=== PATIENT | male | born 1990 | race Caucasian/White ===

== ENCOUNTER 2016-07-18 13:54 | Inpatient (IN) | payer BC, OTHER ==
--- NOTE | ~2016-07-18 | PN ---
Unit #: [id number] #: [id number] Patient: TAMIE KIDD [id number] [facility] [address] [place] [address] [id number] I MR#: [id number] NAME: TAMIE KIDD ROOM: P256 Age: 26 Sex: M Admission Date: 07/18/2016 : 1990 Attending Physician: Pablo Leger M.D. Admitting Physician: Pablo Leger M.D. Primary Care Physician: Primary Care Physician Siri MOON PROGRESS NOTES DATE 07/19/2016 DISCUSSION Mr. Kidd is a 26-year-old, white male who was seen today and chart was reviewed and case was discussed with the staff. He has been anxious, withdrawn and rather seclusive to himself. Meanwhile, he has been cooperative with treatment recommendations. He has been taking medications and tolerating them fairly well with no reported side effects. MENTAL STATUS EXAM Young white male who was casually dressed with fair personal hygiene, appears to be in no acute distress or discomfort. He was awake and alert on interaction with intact orientation. His mood was anxious with congruent affect. He denies any suicidal or homicidal ideation. His insight and judgement remains slightly impaired. TREATMENT PLAN 1. We will continue him on his current treatment protocol. We will monitor his response to the medication and make further adjustments as needed. 2. We will continue to follow up. Dictated by... Naveen Willis/debbie TD: 07/20/2016 22:41 JOB #: [id number] Unit #: [id number] #: [id number] Patient: TAMIE KIDD JORGITOMINNIE PROGRESS NOTES Page 1 of 1 X Pablo Leger MD PROGRESS NOTE
--- NOTE | ~2016-07-18 | PN ---
Unit #: [id number] #: [id number] Patient: TAMIE KIDD [id number] [facility] [address] [place] [address] [id number] I MR#: [id number] NAME: TAMIE KIDD ROOM: P256 Age: 26 Sex: M Admission Date: 07/18/2016 : 1990 Attending Physician: Pablo Leger M.D. Admitting Physician: Pablo Leger M.D. Primary Care Physician: Primary Care Physician Siri MOON PROGRESS NOTES DATE 07/23/2016 DISCUSSION Mr. Kidd is a 26-year-old, white male who was seen today and chart was reviewed and case was discussed with the staff. He has been anxious, withdrawn and rather seclusive to himself. Meanwhile, he has been cooperative with treatment recommendations and has been taking his medications and tolerating them fairly well with no reported side effects. MENTAL STATUS EXAM Young white male who was casually dressed with fair personal hygiene, appears to be in no acute distress or discomfort. He was awake and alert on interaction with intact orientation. His mood was anxious with congruent affect. He denies any suicidal or homicidal ideation. His insight and judgement remains slightly impaired. TREATMENT PLAN 1. We will continue him on his current medications and treatment protocol. We will monitor his response to the medication and make further adjustments as needed. 2. We will continue to follow up. Dictated by... Naveen Willis/debbie TD: 07/26/2016 21:26 JOB #: [id number] Unit #: [id number] #: [id number] Patient: TAMIE KIDD PROGRESS NOTES Page 1 of 1 X Pablo Leger MD PROGRESS NOTE
--- NOTE | ~2016-07-18 | HP ---
Unit #: [id number] #: [id number] Patient: ANDREW KIDD [id number] [facility] [address] [place] [address] [id number] I MR#: [id number] NAME: ANDREW KIDD ROOM: [facility] Age: 26 Sex: M Admission Date: 07/18/2016 : 1990 Attending Physician: Pablo Leger M.D. Admitting Physician: Pablo Leger M.D. Primary Care Physician: Primary Care Physician No HISTORY AND PHYSICAL HISTORY OF PRESENT ILLNESS Andrew is a 26-year-old male admitted on 07/18/2016, to [address] [place] [address] for suicidal ideation with a plan to overdose. PAST MEDICAL HISTORY None. PAST SURGICAL HISTORY None. SOCIAL HISTORY Smokes one pack of cigarettes weekly. Social alcohol use and occasional marijuana use. He is currently single and living with his aunt and uncle. FAMILY HISTORY Noncontributory. REVIEW OF SYSTEMS CONSTITUTIONAL: No fever or chills. HEENT: Denies any sore throat, ear pain or runny nose. CARDIOVASCULAR: Denies chest pain, irregular heart rhythm or palpitations. CHEST: Denies shortness of breath or cough. No hemoptysis. GASTROINTESTINAL: Denies nausea, vomiting, diarrhea or chronic constipation. ENDOCRINE: Denies history of increased thirst or urination. No recent significant weight loss or gain. GENITOURINARY: Denies dysuria, frequency, or hematuria. SKIN: Denies any rashes. HEMATOLOGIC: Denies history of increased bleeding or bruising. MUSCULOSKELETAL: Denies any hot, swollen joints. No generalized muscle pain. NEUROLOGIC: Denies problems with vision or speech. No frequent, severe headaches. No numbness, tingling or weakness in any extremities. Denies loss of bladder or bowel control. CURRENT MEDICATIONS None ALLERIGES None PHYSICAL EXAMINATION GENERAL: Alert and oriented in no acute distress. VITAL SIGNS: Blood pressure 120/80, heart rate 54, temperature 98.2, Unit #: [id number] #: [id number] Patient: ANDREW KIDD height 6 feet 1 inch WEIGHT: 194 pounds SKIN: Warm and dry without rash or lesion. HEENT: Normocephalic. TMs not viewed. Oral and nasal passages clear. Conjunctivae clear. PERRLA. EOMs intact. NECK: Supple without lymphadenopathy or thyromegaly. HEART: Regular rate and rhythm without murmur. LUNGS: Clear. ABDOMEN: Soft, nontender, without masses or hepatosplenomegaly. : Not done. EXTREMITIES: No evidence of cyanosis, clubbing or edema. Moves all without focal deficit. NEUROLOGICAL: Grossly within normal limits. Cranial Nerves: II: Visual boland are intact. III, IV AND : Extraocular movements are intact. Pupils are equal, round and reactive to light. V: Facial sensation is grossly normal. VII: Facial movements and expression are normal. VIII: Auditory acuity grossly intact. IX, X: Uvula is midline. Phonation is normal. XI: Patient shrugs shoulders and turns head normally. XII: Tongue protrudes in the midline. Sensory and Motor Function: Sensory and motor sensation is grossly normal. Motor: moves all extremities well. Coordination: Gait is normal. Deep Tendon Reflexes: Intact. MEDICAL ASSESSMENT AND PLAN Psychiatric admission RECOMMENDATIONS 1. Psychiatric, per psychiatrist. 2. Medical, no contraindications to participating in facility's activities. MEDICAL PROGNOSIS Good. MEDICAL CONDITION Stable. Dictated by... Riley Crain/hudson TD: 07/19/2016 15:47 JOB #: [id number] Unit #: [id number] #: [id number] Patient: ANDREW KIDD HISTORY AND PHYSICAL Page 1 of 1 X VANGIE STELRING APRN HISTORY AND PHYSICAL
--- NOTE | ~2016-07-18 | DS ---
Unit #: [id number] #: [id number] [facility]: [facility]IDD [id number] [facility] [place] [address] [id number] I MR#: [id number] NAME: TAMIE KIDD ROOM: [facility] Age: 26 Sex: M Admission Date: 07/18/2016 : 1990 Discharge Date: 07/24/2016 Attending Physician: Pablo Leger M.D. Primary Care Physician: Primary Care Physician No DISCHARGE SUMMARY IDENTIFYING DATA Mr. Kidd is a 26-year-old single white male, who is a resident of [place], [place], and was self-referred to the hospital and was accompanied by family members. DISCHARGE DIAGNOSES Psychiatric: Major depressive disorder, recurrent, moderate, without psychotic features; generalized anxiety disorder; cannabis dependence, moderate. Medical: None. Stressors: Moderate psychosocial stressors. HISTORY OF PRESENT ILLNESS Please see initial psychiatric evaluation for details. PAST PSYCHIATRIC HISTORY Please see initial psychiatric evaluation for details. PAST MEDICAL HISTORY Please see initial psychiatric evaluation for details. HOSPITAL COURSE The patient was admitted to the adult psychiatric unit at [facility] [place] and was oriented to the hospital environment. Routine p.r.n. medications were initiated, and he was started back on his home medication. Effexor and BuSpar were started to help with depression, anxiety. However, the patient was exhibiting significant anxiety and was having difficulty even urinating and it got worse where we have to do a straight cath, however, he was able to then urinate on his own and was seen to be doing much better on medications and was taking the medications regularly and was tolerating them fairly well and was able to show a decent therapeutic response with improvement in depression and anxiety and was denying any suicidal ideations, intent, or plan and as such, it was decided that he will be discharged home and will continue treatment on an outpatient basis. DISCHARGE MEDICATIONS Effexor XR 75 mg in the morning for depression and BuSpar 10 mg t.i.d. for anxiety. DISCHARGE CONDITION Stable. PROGNOSIS Fair. Unit #: [id number] #: [id number] Patient: TAMIE KIDD Dictated by... Naveen Willis/yanelis TD: 07/24/2016 23:44 JOB #: [id number] DISCHARGE SUMMARY Page 1 of 1 X Pablo Leger MD DISCHARGE SUMMARY
--- NOTE | ~2016-07-18 | PN ---
Unit #: [id number] #: [id number] Patient: TAMIE KIDD [id number] [facility] [address] [place] [address] [id number] I MR#: [id number] NAME: TAMIE KIDD ROOM: P256 Age: 26 Sex: M Admission Date: 07/18/2016 : 1990 Attending Physician: Pablo Leger M.D. Admitting Physician: Pablo Leger M.D. Primary Care Physician: Primary Care Physician Siri MOON PROGRESS NOTES Please note: This report has been placed on the patient's electronic medical record in an incomplete status following multiple physician notifications for completion without response or resolution. DATE 07/20/2016 DISCUSSION Mr. Iglesias was seen today and chart was reviewed and case was discussed with the staff. Per report the patient has not been doing good . The patient was lying in bed and reports increasing depression and anxiety . that he cannot and has not been able to urinate or use the restroom and feels constipated and feels that he is having difficulty even emptying his bladder, which he never had issues with that before. He has been compliant with the treatment recommendations. He has been taking medications and tolerating them fairly well. MENTAL STATUS EXAM Young white male who was casually dressed with fair personal hygiene, appears to be in no acute distress or discomfort. He was awake and alert on interaction with intact orientation. His mood was anxious with congruent affect. He denies any suicidal or homicidal ideation. His insight and judgement remains slightly impaired. TREATMENT PLAN 1. We will continue him on his current treatment protocol. We will monitor his response to the medication and make further adjustments as needed. 2. We will continue to follow up. Dictated by... Naveen Willis/debbie TD: 07/21/2016 22:53 JOB #: [id number] Unit #: [id number] #: [id number] Patient: TAMIE KIDD PROGRESS NOTES Page 1 of 1 X Pablo Leger MD NOTE
--- NOTE | ~2016-07-18 | PA ---
Unit #: [id number] #: [id number] Patient: TAMIE KIDD [id number] [facility] [address] [place] [address] [id number] I MR#: [id number] NAME: TAMIE KIDD ROOM: [facility] Age: 26 Sex: M Admission Date: 07/18/2016 : 1990 Date of Assessment: Attending Physician: Pablo Leger M.D. Admitting Physician: Pablo Leger M.D. PSYCHIATRIC ASSESSMENT DATE OF SERVICE 07/18/2016. IDENTIFYING DATA Mr. Kidd is a 26-year-old single white male, who is a resident of [place], [place], and was self-referred to the hospital and was accompanied by his family member. CHIEF COMPLAINT "Suicidal ideation with a plan to overdose on Klonopin or hang myself." HISTORY OF PRESENT ILLNESS Mr. Kidd is a 26-year-old white male, who was brought to the hospital by his aunt and uncle and reported suicidal ideation with a plan to overdose on Klonopin or hang himself and reports that the suicidal thoughts are due to situation leading to his current state of mind and grief and loss over a breakup with his girlfriend and recent loss of apartment and job when she left. He reports that he is hearing a male voice commanding and telling him to overdose and kill himself and reports that he self medicates daily with cannabis, two blunts daily, since he was 17 years old and reports increasing depression and isolating in his house daily for the last month with social anxiety, daily panic attacks, and suicidal ideations with an intent and plan to overdose on Klonopin. Review of the medical records indicate that he has indeed been provided Klonopin by some outpatient provider at a very high dose of 6 mg of Klonopin a day in divided doses despite the fact that he has been using cannabis on a daily basis and despite the fact that he has been going through some depression, he is not taking any antidepressants rather has been given Klonopin. SUBSTANCE ABUSE HISTORY The patient reports history of experimentation with cannabis and opioids, and currently, cannabis has been his drug of choice as he reports that he has been smoking two blunts on a daily basis. PAST PSYCHIATRIC HISTORY The patient has had a history of inpatient psychiatric treatment as a teenager twice, but currently he is not seeing a psychiatrist and has a primary care provider by the name of Dr. Oliveira, who appears to prescribing him Klonopin 2 mg t.i.d. PAST MEDICAL HISTORY No acute or chronic medical illnesses. Unit #: [id number] #: [id number] Patient: TAMIE KIDD ALLERGIES No known medication allergies. PERSONAL AND SOCIAL HISTORY A 26-year-old white male, who reports that he is single and unemployed and lives at home with his aunt and uncle and has fairly decent social support system. MENTAL STATUS EXAMINATION Young white male, who was casually dressed with fair personal hygiene, appears to be in no acute distress or discomfort. He was awake and alert on interaction with intact orientation to time, place, and person. His mood was anxious and depressed with a congruent affect. His speech was slow and restricted in content. His thought processes were disorganized with some looseness of associations and flight of ideas and suicidal ideations. His insight and judgment remain significantly impaired. DIAGNOSTIC IMPRESSION Psychiatric: Major depressive disorder, recurrent, moderate, without psychotic features; generalized anxiety disorder; and cannabis dependence, moderate. Medical: None. Stressors: Moderate psychosocial stressors. TREATMENT PLAN 1. The patient has presented with a history of mood disorder and has been decompensating and will need inpatient hospitalization for safety and stabilization. We will start him on his home medications, though we will discontinue Klonopin and consider putting benzo detox protocol and target medication adjustment for depression and anxiety. 2. Supportive therapy was provided to the patient. ESTIMATED LENGTH OF STAY 5 to 7 days. ABILITY TO HELP SELF Limited. WILLINGNESS TO HELP SELF The patient appears to be willing to help self. STRENGTHS 1. Communicative. 2. Cooperative. PROBLEMS 1. Chronic dysphoric symptoms. 2. Poor social support system. DISCHARGE CRITERIA This will be contingent upon the patient's ability to show resolution of his depression and anxiety and his ability to stay safe to himself, particularly after discharge from the hospital. Dictated by... Naveen Willis/yanelis Unit #: [id number] #: [id number] Patient: TAMIE KIDD TD: 07/19/2016 10:30 JOB #: [id number] PSYCHIATRIC ASSESSMENT Page 1 of 1 X Pablo Leger MD PSYCHIATRIC ASSESSMENT
--- NOTE | ~2016-07-18 | PN ---
Unit #: [id number] #: [id number] Patient: TAMIE KIDD [id number] [facility] [address] [place] [address] [id number] I MR#: [id number] NAME: TAMIE KIDD ROOM: P256 Age: 26 Sex: M Admission Date: 07/18/2016 : 1990 Attending Physician: Pablo Leger M.D. Admitting Physician: Pablo Leger M.D. Primary Care Physician: Primary Care Physician Siri HIRSCH NOTES DATE OF SERVICE 07/21/2016 DISCUSSION Mr. Kidd is a 26-year-old white male who was seen today. Chart was reviewed and case was discussed with the staff. He has been anxious, withdrawn, and rather seclusive to himself. Meanwhile, he has been cooperative with the treatment recommendations and has been taking the medications and tolerating them fairly well with no reported side effects. MENTAL STATUS EXAMINATION Young white male who is casually dressed with fair personal hygiene, appears to be in no acute distress or discomfort. The patient was awake and alert with intact orientation. His mood is anxious with congruent affect. He denies any suicidal or homicidal ideations. His insight and judgment remain slightly impaired. TREATMENT PLAN 1. We will continue him on his current medications and treatment protocol. We will monitor his response to the medications and make further adjustments as needed. 2. We will continue to follow up. Dictated by... Pablo Leger M.D. IAA/bzg TD: 07/22/2016 14:07 JOB #: [id number] Unit #: [id number] #: [id number] Patient: TAMIE KIDD PROGRESS NOTES Page 1 of 1 X Pablo Leger MD PROGRESS NOTE
--- NOTE | ~2016-07-18 | PN ---
Unit #: [id number] #: [id number] Patient: TAMIE KIDD [id number] [facility] [address] [place] [address] [id number] MR#: [id number] NAME: TAMIE KIDD ROOM: P256 Age: 26 Sex: M Admission Date: 07/18/2016 : 1990 Attending Physician: Pablo Leger M.D. Admitting Physician: Pablo Leger M.D. Primary Care Physician: Siri Primary Care Physician RED PROGRESS NOTES DATE July 22, 2016 DISCUSSION Mr. Kidd is a 26-year-old, white male with mood disorder who was seen today and chart was reviewed. His case was discussed with the staff who report patient has been having difficulty urinating to an extent they had to straight cath him yesterday due to his persistent difficulty urinating and he did not have this problem before coming to the hospital and it is not clear if his anxiety has been leading him to not be able to urinate. He also is complaining of constipation and was given stool softener (1) he has been feeling better, but he continues to seclude himself and has been very isolative and has not been interacting or socializing and has been exhibiting significant depressive symptoms and has been expressing feelings of hopelessness and helplessness. Meanwhile, he has been taking the medications and tolerating them fairly well with no reported side effects. MENTAL STATUS EXAMINATION Young white man who was casually dressed with a fair personal hygiene and appears to be in no acute distress or discomfort. He was awake and alert on interaction with intact orientation. His mood was anxious and depressed with a congruent affect. Speech is slow and goal-directed. He denies any suicidal ideation. His insight and judgement remain slightly impaired. TREATMENT PLAN 1. We will continue his current medications and treatment protocol. Will monitor his response to the medications and make further adjustments as needed. 2. We will continue to follow up. Dictated by... Naveen Willis/raquel TD: 07/24/2016 08:39 JOB #: [id number] Unit #: [id number] #: [id number] [facility]: [facility] PRO[facility] Page 1 of 1 X Pablo Leger MD PROGRESS NOTE
--- NOTE | ~2016-07-18 | CO ---
Unit #: [id number] #: [id number] Patient: TAMIE KIDD [id number] [facility] [address] [place] [address] [id number] I MR#: [id number] NAME: TAMIE KIDD ROOM: P256 Age: 26 Sex: M Admission Date: 07/18/2016 : 1990 Attending Physician: Pablo Leger M.D. Primary Care Physician: Primary Care Physician No Consultation Date: 07/21/2016 CONSULTATION REPORT DAMIEN Morales is a 26-year-old admitted with depression and after verbalizing wanting to hurt himself. 48 hours after admission, he complained of inability to urinate or have a bowel movement. He denied any prior urinary tract pathology to include kidney stones. He denied pain in his abdomen or lower back. His last stated bowel movement was two days prior to admission. OBJECTIVE ABDOMEN: Soft with minimal diffuse tenderness. No hepatosplenomegaly noted. He was a bit more tender along the suprapubic area, but no distention was noted. PLAN He was given one bottle of mag citrate followed by 8 ounces of water. He did have a good bowel movement subsequent to this. He was fluid challenged with 16 ounces of water and walked out of his bathroom. Within 2 hours, he was asking to use the restroom. He was observed by staff and was urinating without problem. No further Rx plan. Dictated by... Chel Vo P.A.-C. for Naveen Sunshine/yanelis TD: 07/25/2016 02:48 JOB #: [id number] CONSULTATION REPORT Page 1 of 1 X Chel Vo CONSULTATION REPORT
[2016-07-20 09:33] LABS: BASOPHIL# 0.1 X10e3 (0-0.3); BASOPHIL% 0.6 % (0-2.5); EOSINOPHIL# 0.2 X10e3 (0-0.7); EOSINOPHIL% 1.9 % (0.0-7.0); HEMATOCRIT 48.5 % (38.0-50.0); HEMOGLOBIN 16.1 gm/dL (13.0-16.0); LYMPHOCYTE# 3.2 X10e3 (1.0-3.5); LYMPHOCYTE% 36.5 % (17.0-45.0); MEAN CELL VOLUME 87.4 FL (83-96); MEAN CORPUSCULAR HEMOGLOBIN 29.1 PG (28-34); MEAN CORPUSCULAR HGB CONC 33.3 g/dL (30-36); MEAN PLATELET VOLUME 9.7 FL (6.5-11.5); MONOCYTE# 0.6 X10e3 (0-1.0); MONOCYTE% 6.3 % (3.0-12.0); NEUTROPHIL# 4.8 X10e3 (1.5-7.1); NEUTROPHIL% 54.7 % (40-75); PLATELET COUNT 206 X10e3 (140-420); RED BLOOD COUNT 5.55 X10e (3.90-5.60); RED CELL DISTRIBUTION WIDTH 13.5 % (11.0-15.5); WHITE BLOOD COUNT 8.9 X10e3 (4.0-10.5)
[2016-07-20 09:42] LABS: DIFF IND NO
[2016-07-20 09:45] LABS: URINE APPEARANCE CLEAR; URINE BILIRUBIN NEG (NEG); URINE BLOOD NEG (NEG); URINE COLOR YELLOW; URINE GLUCOSE NEG (NEG); URINE KETONE NEG (NEG); URINE LEUKOCYTE ESTERASE NEG (NEG); URINE NITRATE NEG (NEG); URINE PROTEIN NEG (NEG); URINE SPECIFIC GRAVITY 1.009 (1.003-1.035); URINE UROBILINOGEN 0.2 MG/DL (NEG)
[2016-07-20 09:59] LABS: ALBUMIN SERUM 4.6 g/dL (3.5-5.0); BILIRUBIN,TOTAL 0.6 mg/dL (0.2-2.0); BUN/CREATININE RATIO 13.33; CALCIUM SERUM 9.5 mg/dL (8.4-10.2); CREATININE SERUM 0.9 mg/dL (0.6-1.4); GLOM FILT RATE Estimated 118.3 mL/min (>60); POTASSIUM 4.3 mmol/L (3.5-5.1); PROTEIN TOTAL SERUM 7.3 g/dL (6.0-8.3)
[2016-07-20 10:00] LABS: THYROID STIMULATING HORMONE 1.31 uIU/ml (0.34-5.60)
[2016-07-20 10:08] LABS: FREE THYROXIN (T4) 0.8 ng/dL (0.58-1.64)
[2016-07-20 10:18] LABS: AMPHETAMINE NEG (NEG); BARBITURATES NEG (NEG); BENZODIAZEPINES POS (NEG); COCAINE NEG (NEG); MARIJUANA POS (NEG); OPIATES NEG (NEG); TRICYCLIC ANTIDEPRESSANTS NEG (NEG); U METHADONE NEG (NEG)
== END 2016-07-24 12:00 | disposition home or self-care (01) | DRG 885 ==
LOC: P2L 13:54
PROVIDERS: Psychiatry & Neurology Psychiatry
PROC: HZ2ZZZZ Detoxification Services for Substance Abuse Treatment (ICD-10-PCS; principal; 2016-07-18)
DX: F33.1 Major depressive disorder, recurrent, moderate (principal); R45.851 Suicidal ideations; F41.1 Generalized anxiety disorder; F12.20 Cannabis dependence, uncomplicated; F17.210 Nicotine dependence, cigarettes, uncomplicated
CPT/HCPCS: 80053; 80307; 81003; 82947; 84439; 84443; 85025; 86592